=== PATIENT | male | born 1965 | race African-American/Black ===

== ENCOUNTER 2017-09-04 05:50 | Emergency (ER) | payer OTHER, SELFPAY ==
[2017-09-04] MEDS ORDERED: HYDROcodone/Acetaminophen 5/325 mg Tablet ONE (06:28)
[2017-09-04] MEDS ORDERED: Lidocaine 1% w/Epinephrine 1:200K 30 ML VIAL ONE (06:35)
== END 2017-09-04 07:54 | disposition home or self-care (01) ==
LOC: ERS 05:50
DX: L72.9 Follicular cyst of the skin and subcutaneous tissue, unspecified (principal); F17.210 Nicotine dependence, cigarettes, uncomplicated
CPT/HCPCS: 10061

== ENCOUNTER 2017-09-07 18:30 | Emergency (ER) | payer SELFPAY | END 2017-09-07 19:40 | disposition home or self-care (01) | LOC: ERS 18:30 | DX: Z48.817 Encounter for surgical aftercare following surgery on the skin and subcutaneous tissue (principal); F17.210 Nicotine dependence, cigarettes, uncomplicated; Z71.6 Tobacco abuse counseling | CPT/HCPCS: 99406 ==

== ENCOUNTER 2017-10-21 14:18 | Emergency (ER) | payer SELFPAY ==
[2017-10-21] MEDS ORDERED: Ketorolac Tromethamine 30 MG/ML VIAL ONE (15:57)
[2017-10-21] MEDS ORDERED: Dexamethasone 4 mg/ml Vial ONE (15:57)
--- NOTE | 2017-10-21 17:04 | CT ---
CT CERVICAL SPINE 10/21/17 COMPARISON: None. HISTORY: Pain to the neck and numbness to the left arm with movement of the neck. TECHNIQUE: Serial axial CT imaging at 2.5 mm intervals from skull base through the lung apices without contrast. Coronal and sagittal reformatted imaging obtained. FINDINGS: The imaged lung apices are unremarkable. The imaged paranasal sinuses/mastoid air cells are grossly unremarkable. The C1 ring is intact. The occipital condyles, dens, and C1-2 articulation appear grossly unremarkabl e. There is mild degenerative change within the atlantoaxial interspace. No significant anterolisthesis or retrolisthesis is seen within the cervical spine. No prevertebral soft tissue swelling noted. C2-3: No osseous cause of significant central canal or neural foraminal stenosis. C3-4: No osseous cause of significant central canal or neural foraminal stenosis. C4-5: There is uncovertebral osteophyte formation on the right extending into the right neural forame n with moderate right neural foraminal stenosis. Mild left osteophyte formation extends into the left neural foramen with mild left neural foraminal stenosis. C5-6: There is disc space narrowing, degenerative end plate change with anterior and posterior osteop hyte formation causing at least mild central canal stenosis. There is bilateral facet and uncovertebr al osteophyte formation, left greater than right, extending into bilateral neural foramina. C6-7: There is posterior osteophyte formation and mild disc space narrowing with no osseous cause of significant central canal and neural foraminal stenosis. C7-T1: Unremarkable. There is no evidence for an acute fracture or dislocation. 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 No acute osseous ab normality. POS: [facility]
== END 2017-10-21 17:02 | disposition home or self-care (01) ==
LOC: ERS 14:18
DX: M50.121 Cervical disc disorder at C4-C5 level with radiculopathy (principal); F17.210 Nicotine dependence, cigarettes, uncomplicated
CPT/HCPCS: 72125; 96372; J1100; J1885

== ENCOUNTER 2022-07-02 12:57 | Emergency (ER) | payer BC, SELFPAY ==
[2022-07-02] MEDS ORDERED: Ketorolac Tromethamine 30 MG/ML VIAL ONE (16:17)
[2022-07-02] MEDS ORDERED: Lidocaine 4% Cream 5 GM TUBE w/ Tegaderm ONE (16:56)
[2022-07-02] MEDS ORDERED: Lidocaine 1% (PF) 30 ML VIAL ONE (18:08)
== END 2022-07-02 18:43 | disposition home or self-care (01) ==
LOC: ERS 12:57
DX: N49.2 Inflammatory disorders of scrotum (principal); F17.210 Nicotine dependence, cigarettes, uncomplicated
CPT/HCPCS: 55100; 76870; 93976; 96372; J1885; J2001